=== PATIENT | female | born 1995 | race African-American/Black ===

== ENCOUNTER 2018-11-27 14:28 | Emergency (ER) | payer SELFPAY ==
[2018-11-27 14:37] VITALS: BP 112/63; PULSE 97; TEMP 98.2; BMI 26.0
[2018-11-27] MEDS ORDERED: ACETAMINOPHEN/CAFFEINE/BUTALBITAL 1 TAB PO ONE (15:51)
[2018-11-27] MEDS ORDERED: ACETAMINOPHEN/CAFFEINE/BUTALBITAL 1 TAB ONE (16:18)
--- NOTE | 2018-11-27 16:21 | PDOC ---
History of Present Illness - General Chief Complaint: Headache Stated Complaint: HEADACHE Time Seen by Provider: 11/27/18 15:42 History Source: Patient Exam Limitations: Clinical Condition - History of Present Illness Initial Comments: 11/27/18 16:17 Patient with history of headaches 6 years ago which has resolved 2 years ago and started again 3 months ago with intermittent blurry vision. Patient reported 6 out of 10 headache to posterior sided hand when intermittent blurry vision. Patient reports symptoms started again after her mother 3 months ago and has been worsening while studying for her exam 2 months ago. Patient has not taken anything denies nausea, vomiting, dizziness. Patient reported had a CAT scan done 2 years ago for headache or was found to have fluid in the brain resolved. Timing/Duration: reports: waxing and waning, other (3 months) Past History - Past Medical History Allergies/Adverse Reactions: Allergies Allergy/AdvReac Type Severity Reaction Status Date / Time No Known Allergies Allergy Verified 11/27/18 14:34 Home Medications: Ambulatory Orders Butalb/Acetaminophen/Caffeine [Fioricet 50-300-40 mg Capsule] 1 each PO Q6H PRN #20 capsule 11/27/18 - Suicide/Smoking/Psychosocial Hx Smoking History: Never smoked Information on smoking cessation initiated: No Hx Alcohol Use: No Drug/Substance Use Hx: No Neuro Specific PMHX - Complaint Specific PMHX Glaucoma: No Herniated Disk: No Laminectomy: No Migraine: Yes Multiple Sclerosis: No Neuropathy: No TIA: No Review of Systems - Review of Systems Able to Perform ROS?: Yes Is the patient limited Polish proficient: No Constitutional: Yes: Symptoms Reported. No: Weakness HEENTM: Yes: Symptoms Reported, See HPI, Blurred Vision. No: Eye Pain, Tearing , Recent change in vision, Double Vision Respiratory: No: Symptoms reported, See HPI, Cough, Orthopnea, Shortness of Breath, SOB with Exertion, SOB at Rest, Stridor, Wheezing, Productive cough, Hemoptysis, Other Cardiac (ROS): No: Symptoms Reported, See HPI, Chest Pain, Edema, Irregular Heart Rate, Lightheadedness, Palpitations, Syncope, Chest Tightness, Other ABD/GI: No: Nausea, Vomiting Neurological: Yes: Symptoms reported, See HPI, Headache (posterior head). No: Numbness, Paresthesia, Dizziness All Other Systems: Reviewed and Negative *Physical Exam - Vital Signs Last Vital Signs Temp Pulse Resp BP Pulse Ox 98.2 F 97 H 17 112/63 98 11/27/18 14:34 11/27/18 14:34 11/27/18 14:34 11/27/18 14:34 11/27/18 14:34 - Physical Exam Comments: 11/27/18 16:24 GENERAL: Well developed, well nourished. Awake and alert. No acute distress. HEENT: Normocephalic, atraumatic. PERRLA, EOMI. No conjunctival pallor. Sclera are non- icteric. Moist mucous membranes. Oropharynx is clear. NECK: Supple. Full ROM. No JVD. Carotid pulses 2+ and symmetric, without bruits. No thyromegaly. No lymphadenopathy. CARDIOVASCULAR: Regular rate and rhythm. No murmurs, rubs, or gallops. Distal pulses are 2+ and symmetric. PULMONARY: No evidence of respiratory distress. Lungs clear to auscultation bilaterally. No wheezing, rales or rhonchi. MUSCULOSKELETAL Normal range of motion at all joints. No bony deformities or tenderness. SKIN: Warm and dry. Normal capillary refill. No rashes. NEUROLOGICAL: Alert, awake, appropriate. Cranial nerves 2-12 intact. No motor deficits in the in face, upper extremities and lower extremities. Normal speech. Toes are down-going bilaterally. Gait is normal without ataxia. PSYCHIATRIC: Cooperative. Good eye contact. Appropriate mood and affect. General Appearance: Yes: Nourished, Appropriately Dressed. No: Apparent Distress ED Treatment Course - ADDITIONAL ORDERS Additional order review: Laboratory Results 11/27/18 14:54 Urine HCG, Qual Negative - RADIOLOGY Radiology Studies Ordered: Category Date Time Status HEAD CT WITHOUT CONTRAST [CT] Stat CT Scan 11/27/18 15:51 Ordered Medical Decision Making - Medical Decision Making 11/27/18 16:21 Patient with history of headaches 6 years ago which has resolved 2 years ago and started again 3 months ago with intermittent blurry vision. Patient reported 6 out of 10 headache to posterior sided hand when intermittent blurry vision. Patient reports symptoms started again after her mother 3 months ago and has been worsening while studying for her exam 2 months ago. Patient has not taken anything denies nausea, vomiting, dizziness. Patient reported had a CAT scan done 2 years ago for headache or was found to have fluid in the brain resolved. Exam significant for mild point tenderness to occiput of head. Normal neuro exam. Pupil equal and refracted to light bilateral. Symptoms likely migraine with aura versus less likely intracranial occupying pathology. Fioricet by mouth ordered for headache. Head CT ordered to rule out acute intracranial pathology. The patient be discharged home on Fioricet if negative CT with neurology follow-up 11/27/18 17:[address] without acute pathology. Patient symptoms likely migraine headaches. Patient is stable for discharge with neurology follow-up *DC/Admit/Observation/Transfer Diagnosis at time of Disposition: Migraine headache with aura Qualifiers: Status migrainosus presence: without status migrainosus Intractability: not intractable Qualified Code(s): G43.109 - Migraine with aura, not intractable, without status migrainosus - Discharge Dispostion Disposition: HOME Condition at time of disposition: Stable Decision to Admit order: No - Prescriptions Prescriptions: Butalb/Acetaminophen/Caffeine [Fioricet 50-300-40 mg Capsule] 1 each PO Q6H PRN #20 capsule PRN Reason: headache - Referrals Referrals: Jesus Millan MD [Staff Physician] - - Patient Instructions Printed Discharge Instructions: Migraine -- Adult, Migraine Headaches ( Alternative Therapy) Additional Instructions: Your head CAT scan was normal. The symptoms likely migraine headache from stress. Take prescribed medication as needed for headache. Follow-up referred neurology if symptoms persist for more than 4 days - Post Discharge Activity
== END 2018-11-27 17:34 | disposition home or self-care (01) ==
LOC: JER 14:28 → JERFT 14:28
DX: G43.109 Migraine with aura, not intractable, without status migrainosus (principal)
CPT/HCPCS: 70450-TC; 84703; 99281-25